=== PATIENT | female | born 1975 | race Caucasian/White ===

== ENCOUNTER 2022-06-24 11:02 | Emergency (ER) | payer MEDICAID ==
[~2022-06-24] VITALS: Ht 162.6 cm; Wt 598.7 kg
[2022-06-24] MEDS ORDERED: ONDANSETRON 4 MG/2 ML VIAL IVP ONE (11:15)
[2022-06-24] MEDS ORDERED: MORPHINE SULFATE 4 MG/ML SYR IVP ONE (11:15)
[2022-06-24] MEDS ORDERED: NACL 0.9% 1,000 ML IV ONE (11:15)
--- NOTE | 2022-06-24 11:15 | NUR ---
BIBA ALS TO ER BED 9 Addendum: 06/24/22 at 1115 by [email or web address] BLS TO ER BED 9
[2022-06-24 11:20] VITALS: BP 115/74
--- NOTE | 2022-06-24 12:11 | NUR ---
PT BACK FROM CT Addendum: 06/24/22 at 1211 by [email or web address] PT BACK FROM XR
[2022-06-24] MEDS ORDERED: IBUP-2213 PO (12:44)
[2022-06-24] MEDS ORDERED: ACET-5629 PO (12:44)
[2022-06-24] MEDS ORDERED: LID5T TP (12:44)
== END 2022-06-24 11:52 | disposition home or self-care (01) ==
LOC: MED 11:02
DX: S39.012A Strain of muscle, fascia and tendon of lower back, initial encounter (principal); Z79.899 Other long term (current) drug therapy; Z79.1 Long term (current) use of non-steroidal anti-inflammatories (NSAID); X58.XXXA Exposure to other specified factors, initial encounter; Y92.89 Other specified places as the place of occurrence of the external cause; Y93.89 Activity, other specified; Y99.8 Other external cause status
CPT/HCPCS: 72100; 96361; 96374; 96375; 99284; J2270; J2405; J7030